=== PATIENT | female | born 1945 | race Caucasian/White ===

== ENCOUNTER → 2023-01-08 08:38 | Outpatient (REF) | payer MEDICARE, OTHER, SELFPAY ==
--- NOTE | 2023-01-08 08:46 | CA_ITS ---
Transthoracic Echocardiogram Amended Patient (Last, First, Middle): Sobeida Wei S Gender: Female Date of : 1945 Age: 77 Procedure Date: 01/08/2023 Procedure Type: Transthoracic Echocardiogram Location: [facility] Height: 170.18 cm Weight: 86.18 kg BSA: 1.98 m2 Heart Rate: 58 bpm BP: 126 / 76 mmHg Hurl Shaker: ANDER Referring MD: Devin Chen MD [facility] Consultant: Zeus Li MD Symptoms: AVS W INSUFFICIENCY Study Quality: Adequate ECG Rhythm: Bradycardia Conclusions: - 1. Normal LV systolic function with LVEF of 65-70% with impaired relaxation filling pattern 2. 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 Normal RV systolic pressure 4. Mildly dilated ascending aorta 3.9 cm 5. No pericardial effusion Findings Left Ventricle Normal left ventricular size, thickness, and systolic function. The visually estimated ejection fraction is between 65-70%. Spectral Doppler is indicative of an impaired relaxation filling pattern. E/E prime ratio is <8, consistent with normal filling pressures. Evidence suggests grade I (mild) diastolic dysfunction. Peak GLS is -18.5%, within normal limits. Right Ventricle Normal right ventricular cavity size and systolic function. Atria Both atria are normal in size. Interatrial shunt cannot be excluded. Aortic Valve A bioprosthetic aortic valve is present. The prosthetic aortic valve appears to be functioning abnormally. Echo findings are consistent with stenosis of the aortic valve prosthesis. The mean gradient is 41 mmHg. The aortic valve area is 0.64 cm2. Reported bioprosthetic valve is well seated without abnormal rocking motion. Mitral Valve There is mild anterior and posterior mitral leaflet thickening. There is trace mitral valve regurgitation. There is no mitral valve stenosis. Pulmonic Valve The pulmonic valve is likely normal. Tricuspid Valve Normal tricuspid valve structure. There is mild tricuspid valve regurgitation. The right ventricular systolic pressure is normal. Normal right atrial pressure. There is no evidence of pulmonary hypertension. Great Vessels The pulmonary artery was not well visualized. There is mild dilatation of the ascending aorta measuring 3.90 cm. Venous The inferior vena cava is normal in size and collapses greater than 50% with inspiration. Pericardium/Pleural There is no evidence of pericardial effusion. Prior Study Comparison No prior study available for comparison. Measurements 2D Linear Measurements IVSd: 1.15 0.6-0.9/0.6-1.0 cm LVIDd: 4.55 3.9-5.3/4.2-5.9 cm LVIDd Index: 2.30 2.4-3.2/2.2-3.1 cm/m2 LVIDs: 2.85 2.0-3.6 cm LVPWd: 0.83 0.7-1.1 cm Ao Root: 3.10 2.1-3.5 cm LA Diam: 3.50 2.7-3.8/3.0-4.0 cm LAIDs Index: 1.77 1.5-2.3 cm/m2 LV Mass: 191.75 67-162/88-224 g LV Mass Index: 96.84 43-95/49-115 g/m2 LVOT Diam: 2.00 3.0+(-)1.3 cm 2D Volumes LA Vol: 23.10 2D Systolic Function EF 4C: 66.30 >55% EF 2C: 68.10 >55% EF BiP: 67.80 >55% Mitral Valve MV Pk E: 0.65 MV PK A: 0.76 MV Decel Time: 399.00 E/A: 0.90 E'Lateral: 8.92 E'Medial: 5.55 E/E' Med: 11.70 E/E' Lat: 7.30 PHT: 117.00 MVA PHT: 1.88 [place]: 1.63 Aortic Valve AoV Pk Jung: 3.87 AoV Mn Jung: 2.84 AoV VTI: 0.95 AoV Pk Grad: 60.00 Aov Mn Grad: 41.00 JT Cont.VTI: 0.64 LVOT LVOT Pk Jung: 0.81 LVOT Mn Jung: 0.59 LVOT VTI: 0.21 LVOT Pk Grad: 3.00 LVOT Mn Grad: 2.00 LVOT Diam: 2.00 LVOT Area: 3.14 Diastolic Function MV Pk E: 0.65 MV Pk A: 0.76 E/A: 0.90 E'Medial: 5.55 E/E' Med: 11.70 E' Laterial: 8.92 E/E' Lat: 7.30 Right Ventricle TAPSE (mm): 17.50 TVS' Jung: 8.59 Tricuspid Valve TR Pk Jung: 2.43 TR Pk Grad: 24.00 RA Press: 8.00 RVSP: 32.00 Great Vessels Aorta Ao Root-2D: 3.10 2.0-3.7 cm Sinus of Valsalva: 3.10 2.0-3.5 cm Ao Asc: 3.90 2.1-3.4 cm Pulmonary Valve PV Pk Jung: 0.70 Peak PV Grad: 2.00 Updated in Other Vendor System with Status of Final Zeus Li MD electronically signed on 01/08/2023 2:30:33 PM with status of Final
== END ==
LOC: HO.CARD 08:38
PROVIDERS: PCP Internal Medicine; Visit Provider Thoracic Surgery (Cardiothoracic Vascular Surgery)
DX: I35.2 Nonrheumatic aortic (valve) stenosis with insufficiency (principal)
CPT/HCPCS: 93306; 93356

== ENCOUNTER → 2023-01-08 08:46 | Outpatient (BNV) | payer MEDICARE, OTHER, SELFPAY | PROVIDERS: PCP Internal Medicine; Visit Provider Internal Medicine Cardiovascular Disease | DX: T82.857A Stenosis of other cardiac prosthetic devices, implants and grafts, initial encounter (principal) | CPT/HCPCS: 93306 ==